=== PATIENT | male | born 1970 | race Caucasian/White ===

== ENCOUNTER 2016-10-11 17:20 | Inpatient (IN) | payer OTHER ==
[~2016-10-11] VITALS: Ht 185.4 cm; Wt 110.3 kg
[2016-10-11 20:07] LABS: BASOPHIL % 0.4 % (0-2)
[2016-10-11 20:12] LABS: CALCIUM 8.7 mg/dL (8.5-10.1); CARBON DIOXIDE 23.2 mmol/L (21-32); CHLORIDE SERUM 107 mmol/L (98-107); CREATININE SERUM 0.7 mg/dL (0.7-1.3); GFR1 > 60 mL/min; GLUCOSE SERUM 83 mg/dL (74-106); POTASSIUM SERUM 3.8 mmol/L (3.5-5.1); SODIUM SERUM 143 mmol/L (136-145)
[2016-10-11 20:35] LABS: RED CELL DISTRIBUTION WIDTH 19.5 % (11.5-14.5)
[2016-10-11 20:38] LABS: PLATELET COUNT 1037 x10^3mcL (130-400)
[2016-10-11 20:40] LABS: PATH REVIEW for HEMA YES
[2016-10-11] MEDS ORDERED: LISINOPRIL40 MG PO (23:34)
[2016-10-11] MEDS ORDERED: IBUPROFEN400 MG PO (23:35)
[2016-10-11] MEDS ORDERED: ATORVASTATIN CA40 M1 PO (23:35)
[2016-10-11] MEDS ORDERED: MAGNESIUM OXID400 MG PO (23:35)
[2016-10-11] MEDS ORDERED: HYDROXYZINE PAM25 MG PO (23:35)
[2016-10-11] MEDS ORDERED: HYDROCHLOROTH12.5 M3 PO (23:36)
[2016-10-11] MEDS ORDERED: RANITIDINE HCL150 M1 PO (23:36)
[2016-10-11] MEDS ORDERED: GOOD SENSE OMEP20 MG PO (23:36)
[2016-10-11] MEDS ORDERED: ADULT LOW DOSE81 MG PO (23:36)
[2016-10-11] MEDS ORDERED: XOPENEX HF0.045 MG/1 INH (23:37)
[2016-10-11] MEDS ORDERED: ASMANEX HF100 MCG/Ac IH (23:37)
[2016-10-11] MEDS ORDERED: CARVEDILOL3.125 M1 PO (23:37)
[2016-10-11] MEDS ORDERED: DROXIA200 MG PO (23:37)
[2016-10-12 00:31] VITALS: BP 140/91
[2016-10-12 00:39] VITALS: Ht 185.4 cm; Wt 110.3 kg
[2016-10-12 06:09] VITALS: BP 129/78
[2016-10-12 10:22] VITALS: BP 113/63
[2016-10-12 11:02] LABS: CALCIUM 8.5 mg/dL (8.5-10.1); CARBON DIOXIDE 24.1 mmol/L (21-32); CHLORIDE SERUM 107 mmol/L (98-107); CREATININE SERUM 0.9 mg/dL (0.7-1.3); GFR1 > 60 mL/min; GLUCOSE SERUM 143 mg/dL (74-106); POTASSIUM SERUM 3.5 mmol/L (3.5-5.1); SODIUM SERUM 140 mmol/L (136-145)
[2016-10-12 12:43] LABS: BASOPHIL % 0.4 % (0-2)
[2016-10-12 12:48] LABS: RED CELL DISTRIBUTION WIDTH 19.9 % (11.5-14.5)
[2016-10-12 13:24] LABS: PLATELET COUNT 929 x10^3mcL (130-400)
[2016-10-12 13:52] VITALS: BP 103/70
[2016-10-12 17:50] VITALS: BP 135/77
[2016-10-12 21:57] VITALS: BP 123/69
[2016-10-13 05:24] VITALS: BP 124/76
[2016-10-13 10:50] VITALS: BP 131/72
[2016-10-13 13:44] VITALS: BP 119/70
[2016-10-13 17:55] VITALS: BP 133/86
[2016-10-13 21:44] VITALS: BP 125/70
[2016-10-14 05:33] VITALS: BP 155/96
[2016-10-14 07:04] LABS: CALCIUM 8.5 mg/dL (8.5-10.1); CARBON DIOXIDE 28.4 mmol/L (21-32); CHLORIDE SERUM 103 mmol/L (98-107); CREATININE SERUM 0.7 mg/dL (0.7-1.3); GFR1 > 60 mL/min; GLUCOSE SERUM 84 mg/dL (74-106); POTASSIUM SERUM 3.2 mmol/L (3.5-5.1); SODIUM SERUM 138 mmol/L (136-145)
[2016-10-14 07:11] LABS: BASOPHIL % 0.3 % (0-2)
[2016-10-14 07:42] LABS: PLATELET COUNT 893 x10^3mcL (130-400)
[2016-10-14 09:17] LABS: rbc morphology (normal/abnorm) ABNORMAL (NORMAL)
[2016-10-14 10:14] VITALS: BP 139/89
[2016-10-14 14:55] VITALS: BP 138/84
[2016-10-14 18:26] VITALS: BP 138/89
[2016-10-14 21:53] VITALS: BP 130/75
[2016-10-15 05:54] VITALS: BP 127/67
[2016-10-15 09:35] LABS: BASOPHIL % 0.5 % (0-2)
[2016-10-15 09:38] LABS: RED CELL DISTRIBUTION WIDTH 19.9 % (11.5-14.5)
[2016-10-15 09:41] LABS: PLATELET COUNT 932 x10^3mcL (130-400)
[2016-10-15 09:52] LABS: CALCIUM 8.3 mg/dL (8.5-10.1); CARBON DIOXIDE 25.9 mmol/L (21-32); CHLORIDE SERUM 103 mmol/L (98-107); CREATININE SERUM 0.7 mg/dL (0.7-1.3); GFR1 > 60 mL/min; GLUCOSE SERUM 89 mg/dL (74-106); POTASSIUM SERUM 3.8 mmol/L (3.5-5.1); SODIUM SERUM 140 mmol/L (136-145)
[2016-10-15 09:56] VITALS: BP 137/79
[2016-10-15 13:01] VITALS: BP 137/80
[2016-10-15 20:20] VITALS: BP 139/86
[2016-10-16 06:50] LABS: BASOPHIL % 0.2 % (0-2)
[2016-10-16 06:55] VITALS: BP 138/88
[2016-10-16 07:12] LABS: RED CELL DISTRIBUTION WIDTH 19.6 % (11.5-14.5)
[2016-10-16 07:14] LABS: CARBON DIOXIDE 28.1 mmol/L (21-32); CHLORIDE SERUM 101 mmol/L (98-107); CREATININE SERUM 0.8 mg/dL (0.7-1.3); GFR1 > 60 mL/min; GLUCOSE SERUM 155 mg/dL (74-106); SODIUM SERUM 137 mmol/L (136-145)
[2016-10-16 07:16] LABS: PLATELET COUNT 926 x10^3mcL (130-400)
[2016-10-16 09:36] VITALS: BP 147/87
[2016-10-16 14:18] VITALS: BP 135/78
[2016-10-16 17:29] VITALS: BP 136/75
[2016-10-16 20:34] VITALS: BP 121/79
[2016-10-17 05:36] VITALS: BP 138/81
[2016-10-17 07:17] LABS: CALCIUM 8.2 mg/dL (8.5-10.1); CARBON DIOXIDE 25.3 mmol/L (21-32); CHLORIDE SERUM 103 mmol/L (98-107); CREATININE SERUM 0.8 mg/dL (0.7-1.3); GFR1 > 60 mL/min; POTASSIUM SERUM 3.3 mmol/L (3.5-5.1); SODIUM SERUM 139 mmol/L (136-145)
[2016-10-17 09:50] LABS: RED CELL DISTRIBUTION WIDTH 20.1 % (11.5-14.5)
[2016-10-17 09:52] LABS: ATYPICAL LYMPH 1 %; BAND NEUTROPHIL 1 % (0-10); BASOPHIL 1 % (0-2); MONOCYTE 5 % (0-7); SEGMENTED NEUTROPHILS 84 % (37-75); rbc morphology (normal/abnorm) NORMAL (NORMAL)
[2016-10-17 09:53] LABS: PLATELET MORPHOLOGY PLATELETS INCREASED
[2016-10-17 10:16] LABS: PLATELET COUNT 810 x10^3mcL (130-400)
[2016-10-17 10:46] VITALS: BP 139/69
[2016-10-17 12:43] VITALS: BP 125/70
[2016-10-17 18:05] VITALS: BP 149/93
[2016-10-17 21:21] VITALS: BP 147/85
[2016-10-18 05:43] LABS: BASOPHIL % 0.6 % (0-2)
[2016-10-18 05:45] VITALS: BP 141/87
[2016-10-18 06:05] LABS: CARBON DIOXIDE 27.6 mmol/L (21-32); CHLORIDE SERUM 104 mmol/L (98-107); CREATININE SERUM 0.7 mg/dL (0.7-1.3); GFR1 > 60 mL/min; GLUCOSE SERUM 107 mg/dL (74-106); POTASSIUM SERUM 3.5 mmol/L (3.5-5.1); SODIUM SERUM 137 mmol/L (136-145)
[2016-10-18 06:56] LABS: RED CELL DISTRIBUTION WIDTH 20.3 % (11.5-14.5)
[2016-10-18 06:57] LABS: PLATELET COUNT 709 x10^3mcL (130-400); rbc morphology (normal/abnorm) ABNORMAL (NORMAL)
[2016-10-18 09:59] VITALS: BP 125/71
[2016-10-18 13:02] VITALS: BP 136/80
[2016-10-18 17:58] VITALS: BP 143/63
[2016-10-18 20:53] VITALS: BP 137/80
[2016-10-19 05:44] LABS: BASOPHIL % 0.3 % (0-2)
[2016-10-19 05:50] LABS: RED CELL DISTRIBUTION WIDTH 20.1 % (11.5-14.5)
[2016-10-19 05:53] LABS: PLATELET COUNT 816 x10^3mcL (130-400)
[2016-10-19 06:07] LABS: CALCIUM 8.3 mg/dL (8.5-10.1); CARBON DIOXIDE 25.4 mmol/L (21-32); CHLORIDE SERUM 103 mmol/L (98-107); CREATININE SERUM 0.8 mg/dL (0.7-1.3); GFR1 > 60 mL/min; GLUCOSE SERUM 85 mg/dL (74-106); POTASSIUM SERUM 3.8 mmol/L (3.5-5.1); SODIUM SERUM 137 mmol/L (136-145)
[2016-10-19 06:18] VITALS: BP 105/51
[2016-10-19 10:39] VITALS: BP 142/87
[2016-10-19 14:30] VITALS: BP 116/62
[2016-10-19 19:01] VITALS: BP 129/86
[2016-10-19 21:22] VITALS: BP 139/68
[2016-10-20 06:47] VITALS: BP 111/60
[2016-10-20 10:18] VITALS: BP 105/51
[2016-10-20 13:04] LABS: GLUCOSE SERUM 55 mg/dL (74-106)
[2016-10-20 13:35] VITALS: BP 126/79
[2016-10-20 17:16] VITALS: BP 108/61
[2016-10-20 19:50] VITALS: BP 123/80
[2016-10-21 05:56] VITALS: BP 116/72
[2016-10-21 06:18] LABS: CALCIUM 8.7 mg/dL (8.5-10.1); CARBON DIOXIDE 26.9 mmol/L (21-32); CHLORIDE SERUM 101 mmol/L (98-107); CREATININE SERUM 0.8 mg/dL (0.7-1.3); GFR1 > 60 mL/min; GLUCOSE SERUM 92 mg/dL (74-106); POTASSIUM SERUM 4.3 mmol/L (3.5-5.1); SODIUM SERUM 135 mmol/L (136-145)
[2016-10-21 07:06] LABS: PLATELET COUNT 777 x10^3mcL (130-400); RED CELL DISTRIBUTION WIDTH 19.6 % (11.5-14.5)
[2016-10-21 10:25] VITALS: BP 124/68
[2016-10-21 10:43] LABS: ATYPICAL LYMPH 2 %; BAND NEUTROPHIL 18 % (0-10); BASOPHIL 0 % (0-2); MONOCYTE 9 % (0-7); SEGMENTED NEUTROPHILS 60 % (37-75); rbc morphology (normal/abnorm) ABNORMAL (NORMAL); tear drop cell (dacryocyte) 1+
[2016-10-21 13:12] VITALS: BP 124/68
[2016-10-21 14:38] VITALS: BP 113/71
== END 2016-10-21 16:54 | disposition other institution (70) | DRG 854 ==
LOC: ED 17:20 → DU 23:09
PROVIDERS: Emergency Medicine; Surgery; ADMIT Internal Medicine
PROC: 05HM33Z Insertion of Infusion Device into Right Internal Jugular Vein, Percutaneous Approach (ICD-10-PCS; 2016-10-15)
PROC: B543ZZA Ultrasonography of Right Jugular Veins, Guidance (ICD-10-PCS; 2016-10-15)
PROC: 07B60ZX Excision of Left Axillary Lymphatic, Open Approach, Diagnostic (ICD-10-PCS; principal; 2016-10-15 15:00)
DX: A41.9 Sepsis, unspecified organism (principal); L03.112 Cellulitis of left axilla; C94.6 Myelodysplastic disease, not elsewhere classified; C85.94 Non-Hodgkin lymphoma, unspecified, lymph nodes of axilla and upper limb; I10 Essential (primary) hypertension; J45.909 Unspecified asthma, uncomplicated; E78.5 Hyperlipidemia, unspecified; Z79.82 Long term (current) use of aspirin; D47.3 Essential (hemorrhagic) thrombocythemia; E66.01 Morbid (severe) obesity due to excess calories; Z68.32 Body mass index [BMI] 32.0-32.9, adult; R59.9 Enlarged lymph nodes, unspecified
CPT/HCPCS: 82962; 85060; C1751; J1170; J1642; J1956; J2001; J2060; J2270; J2405; J2543; J2550; J2704; J3010; J3370; J3490; J7030; J7040; J7050; J7060; J7120; Q0092; Q0177; Q9967